=== PATIENT | male | born 1995 | race Caucasian/White ===

== ENCOUNTER 2016-04-19 17:13 | Emergency (ER) | payer BC, OTHER ==
--- NOTE | 2016-04-19 17:21 | ER Document Report ---
ED Medical Screen (RME) - General Stated Complaint: URINARY SYMPTOMS Time seen by provider: 17:18 Mode of Arrival: Ambulatory Information source: Patient Notes: 20-year-old male presents to ED for concern for possible STD exposure. A friend of his girlfriend was positive for chlamydia. I have greeted and performed a rapid initial assessment of this patient. A comprehensive ED assessment and evaluation of the patient, analysis of test results and completion of medical decision making process will be conducted by an additional ED providers. TRAVEL OUTSIDE OF THE [place] IN LAST 30 DAYS: No - Related Data Allergies/Adverse Reactions: No Known Allergies Allergy (Verified 04/19/16 17:15) Past Medical History Pulmonary Medical History: Denies: Hx Tuberculosis Past Surgical History: Reports: Hx Appendectomy - Immunizations Hx Diphtheria, Pertussis, Tetanus Vaccination: Yes
[2016-04-19 17:55] LABS: APPEARANCE,URINE CLEAR; BILIRUBIN,URINE NEGATIVE (NEGATIVE); GLUCOSE, URINE NEGATIVE (NEGATIVE); KETONES,URINE NEGATIVE (NEGATIVE); LEUKOCYTE ESTERASE,URINE NEGATIVE (NEGATIVE); NITRITE,URINE NEGATIVE (NEGATIVE); PROTEIN,URINE NEGATIVE (NEGATIVE); URINE SPECIFIC GRAVITY 1.016; UROBILINOGEN,URINE NEGATIVE mg/dL (<2.0)
--- NOTE | 2016-04-19 18:35 | ER Document Report ---
ED General - General Chief Complaint: STD Exposure Stated Complaint: URINARY SYMPTOMS Mode of Arrival: Ambulatory Notes: 20-year-old male here with request to get checked for sexually transmitted disease. He states that he slept with a female 2 months ago and the female was just notified by one of her partners that she may have chlamydia. Patient denies any penile discharge pain dysuria hematuria frequency hesitancy. States he is here just to get checked out. TRAVEL OUTSIDE OF THE [place] IN LAST 30 DAYS: No - Related Data Allergies/Adverse Reactions: No Known Allergies Allergy (Verified 04/19/16 17:15) Past Medical History - General Information source: Patient - Social History Smoking Status: Never Smoker Chew tobacco use (# tins/day): No Family History: None Patient has suicidal ideation: No Patient has homicidal ideation: No Pulmonary Medical History: Denies: Hx Tuberculosis Renal/ Medical History: Denies: Hx Peritoneal Dialysis Past Surgical History: Reports: Hx Appendectomy - Immunizations Hx Diphtheria, Pertussis, Tetanus Vaccination: Yes Review of Systems - Review of Systems Notes: See history of present illness for pertinent positive review of systems; otherwise all review of systems have been reviewed and are negative Physical Exam - Vital signs Vitals: Temp Pulse Resp BP Pulse Ox 98.0 F 108 H 18 131/77 H 100 04/19/16 17:18 04/19/16 17:18 04/19/16 17:18 04/19/16 17:18 04/19/16 17:18 - Notes Notes: PHYSICAL EXAMINATION: GENERAL: Well-appearing and in no acute distress. HEAD: Atraumatic, normocephalic. EYES: Pupils equal round and reactive to light, extraocular movements intact, sclera anicteric, conjunctiva are normal. ENT: nares patent, oropharynx clear without exudates. Moist mucous membranes. NECK: Normal range of motion, supple without lymphadenopathy LUNGS: CTAB and equal. No wheezes rales or rhonchi. HEART: Regular rate and rhythm without murmurs ABDOMEN: Soft, no tenderness. No guarding, no rebound EXTREMITIES: Normal range of motion, no pitting edema. No cyanosis. GENITOURINARY: No lesions visualized NEUROLOGICAL: Cranial nerves grossly intact. Normal sensory/motor exams. PSYCH: Normal mood, normal affect. SKIN: Warm, Dry, normal turgor, no rashes or lesions noted Course - Re-evaluation Re-evalutation: 04/19/16 18:34 MEDICAL DECISION MAKING: Concern for sexually transmitted disease Awaiting gonorrhea chlamydia PCR Patient understands and agrees to the plan of care 04/19/16 19:22 Pt choosing not to wait but does not want to be treated for presumptive infection Will call pt if positive results - Vital Signs Vital signs: Temp Pulse Resp BP Pulse Ox 98.0 F 108 H 18 131/77 H 100 04/19/16 17:18 04/19/16 17:18 04/19/16 17:18 04/19/16 17:18 04/19/16 17:18 Discharge - Discharge Clinical Impression: Sexually transmitted disease exposure Condition: Good Disposition: HOME, SELF-CARE Additional Instructions: You were seen in the emergency department at [facility]. Please followup with your primary physician in the next few days for further management /evaluation. Please return to the emergency department for worsening of symptoms or any symptom that you deem to be concerning or life-threatening. Thank you for allowing us to be part of your care.
[2016-04-19 19:19] LABS: CHLAM PCR NOT DETECTED (NOT DETECT)
[2016-04-19 19:49] VITALS: BP 128/76
== END 2016-04-19 19:49 | disposition home or self-care (01) ==
LOC: ER 17:13
DX: Z20.2 Contact with and (suspected) exposure to infections with a predominantly sexual mode of transmission (principal)
CPT/HCPCS: 81001; 87491; 87591; 99283